=== PATIENT | female | born 1955 | race Caucasian/White ===

== ENCOUNTER 2016-04-01 16:37 | Emergency (ER) | payer OTHER ==
[~2016-04-01] VITALS: Ht 167.6 cm; Wt 90.7 kg
[2016-04-01 16:40] VITALS: BP 125/80
[2016-04-01] MEDS ORDERED: AMBIEN 5 MG TABL5 M1 PO (16:45)
[2016-04-01] MEDS ORDERED: FISH OIL 1,001000 M2 PO (16:46)
[2016-04-01] MEDS ORDERED: NEXIUM40 MG PO (16:46)
[2016-04-01] MEDS ORDERED: VITAMIN D1000 UNI1 PO (16:46)
[2016-04-01] MEDS ORDERED: BACTRIM DS TAB1 EACH PO ×2 (17:14→17:28)
== END 2016-04-01 17:44 | disposition home or self-care (01) ==
LOC: ER 16:37
DX: S60.420A Blister (nonthermal) of right index finger, initial encounter (principal); S60.422A Blister (nonthermal) of right middle finger, initial encounter; L03.011 Cellulitis of right finger; K21.9 Gastro-esophageal reflux disease without esophagitis; F17.210 Nicotine dependence, cigarettes, uncomplicated; W26.0XXA Contact with knife, initial encounter; Y93.9 Activity, unspecified; Y92.9 Unspecified place or not applicable; Y99.9 Unspecified external cause status